=== PATIENT | male | born 1985 | race American Indian/Alaskan Native ===

== ENCOUNTER 2016-07-31 07:28 | Outpatient (CLI) | payer OTHER ==
--- NOTE | 2016-07-31 11:16 | Fluoroscopy Report ---
KUB, double contrast upper GI series: Patient with epigastric and mid chest pain. The initial KUB demonstrates an unremarkable bowel pattern with a moderate fecal load. A double contrast examination demonstrated normal distention of the thoracic esophagus. No ulcerations or contour deformities. The esophagogastric junction does appear slightly wide on the initial upright images. In the prone position with barium swallowing and Valsalva maneuver there is a moderate hiatus hernia produced. In the supine position with water swallowing gastroesophageal reflux is present into the mid esophagus. The contour of the stomach pylorus and duodenum are unremarkable. In the antrum of the stomach there is persistence of the small barium collection that may represent an ulcer. Impressions: 1. Hiatus hernia with gastroesophageal reflux. 2. Questionable small antral ulcer.
--- NOTE | 2016-07-31 11:19 | Ultrasound Report ---
Complete abdominal ultrasound: Images of the liver, spleen, pancreas, and gallbladder are echogenically unremarkable. The CBD width is 4.1 mm. The right renal length is 10.2 cm and the left is 9.7 cm. Both kidneys are echogenically unremarkable. The transverse diameter of the proximal abdominal aorta is 1.4 cm. Impressions: No pathology identified.
== END 2016-07-31 07:29 | disposition home or self-care (01) ==
LOC: US 07:28
PROVIDERS: ATTEND Family Medicine Adult Medicine
DX: K29.71 Gastritis, unspecified, with bleeding (principal); K44.9 Diaphragmatic hernia without obstruction or gangrene; K21.9 Gastro-esophageal reflux disease without esophagitis; R10.9 Unspecified abdominal pain; R07.9 Chest pain, unspecified
CPT/HCPCS: 74247; 76700